=== PATIENT | female | born 2000 | race Caucasian/White ===

== ENCOUNTER 2021-06-24 18:43 | Outpatient (CLI) | payer OTHER ==
[2021-06-24 19:12] LABS: BASOPHILS % (AUTO) 0.3 %; EOSINOPHILS % (AUTO) 0.4 %; HCT - HEMATOCRIT 35.7 % (37.0-47.0); HGB - HEMOGLOBIN 11.9 g/dL (12.0-16.0); LYMPHOCYTES # (AUTO) 1.8 10^3/uL (1.5-3.5); LYMPHOCYTES % (AUTO) 25.6 %; MEAN CORPUSCULAR HEMOGLOBIN 28.7 pg (27.0-31.0); MEAN CORPUSCULAR HGB CONC 33.3 g/dL (32.0-36.0); MEAN CORPUSCULAR VOLUME 86.2 fL (81.0-99.0); MONOCYTES # (AUTO) 0.5 10^3/uL (0.0-1.0); MONOCYTES % (AUTO) 6.5 %; NEUTROPHILS # (AUTO) 4.8 10^3/uL (1.5-6.6); NEUTROPHILS % (AUTO) 66.9 %; PLT - PLATELET COUNT 209 10^3/uL (130-450); RED BLOOD COUNT 4.14 10^6/uL (4.20-5.40); WHITE BLOOD COUNT 7.2 x10^3/uL (4.8-10.8)
[2021-06-24 19:51] LABS: MUDS CUTOFF CONCENTRATIONS CUTOFF CONC BELOW:
[2021-06-24 19:53] LABS: BILIRUBIN,URINE NEGATIVE (NEGATIVE); GLUCOSE, URINE (UA) NEGATIVE (NEGATIVE); KETONES,URINE (UA) NEGATIVE (NEGATIVE); LEUKOCYTE ESTERASE, URINE NEGATIVE (NEGATIVE); NITRITE,URINE NEGATIVE (NEGATIVE); OCCULT BLOOD,URINE MODERATE (NEGATIVE); PROTEIN,URINE NEGATIVE (NEGATIVE); UROBILINOGEN,URINE 0.2 (NORMAL) E.U./dL (NORMAL)
[2021-06-24 19:57] LABS: CLARITY,URINE HAZY (CLEAR)
[2021-06-24 20:02] LABS: AMORPHOUS SEDIMENT,UR Few /LPF; BACTERIA,URINE Rare /HPF (None Seen); SQUAMOUS EPITHELIAL CELL,UR FEW Squamous (<= Few); WBC,URINE 0-3 /HPF (0-5)
[2021-06-24 20:05] LABS: AMPHETAMINE SCREEN,URINE NEGATIVE (NEGATIVE); BARBITURATE SCREEN,UR NEGATIVE (NEGATIVE); BENZODIAZEPINES SCREEN, URINE NEGATIVE (NEGATIVE); COCAINE SCREEN URINE NEGATIVE (NEGATIVE); METHADONE SCREEN, URINE NEGATIVE (NEGATIVE); METHAMPHETAMINES SCREEN, URINE NEGATIVE (NEGATIVE); OPIATE SCREEN, URINE NEGATIVE (NEGATIVE); OXYCODONE SCREEN, URINE NEGATIVE (NEGATIVE); PROPOXYPHENE SCREEN, URINE NEGATIVE (NEGATIVE); THC CANNABINOID SCREEN, URINE NEGATIVE (NEGATIVE); TRICYCLIC ANTIDEPRESSANT,URINE NEGATIVE (NEGATIVE)
--- NOTE | 2021-06-25 09:24 | Ultrasound Report ---
PROCEDURE: OB First Trimester w/TV INDICATIONS: POSITIVE TEST OUTSIDE/PRIOR DATING DATA: Last menstrual period (LMP): 04/15/2021. LMP-based estimated date of delivery (TYRELL): 01/20/2022. First dating scan (date and location): 06/24/2021. Estimated date of delivery (TYRELL) from first dating scan: 01/18/2022. The below data below was generated using the ultrasound generated TYRELL of 01/18/2022 TECHNIQUE: Real-time scanning was performed of the fetus and maternal pelvic organs, with image documentation. Endovaginal scanning was also performed to better visualize the fetus and maternal ovaries. COMPARISON: None FINDINGS: Embryo: There is a gestational sac in the uterine fundus with mean sac diameter of 5.1 cm. Within th e gestational sac there is an embryo measuring 3.4 cm in length. Average ultrasound age is 10 weeks 2 days. Heart rate: 166 Measurement variability in dating: +/- 4 weeks by LMP, +/- 7 days by mean sac diameter (use before 6 weeks gestation if crown-rump length not able to be measured), +/- 5 days by crown-rump length (6-12 weeks gestation). Maternal organs: Ovaries normal in appearance. Right corpus luteum cyst noted. IMPRESSION: Single live intrauterine gestation with average ultrasound age of 10 weeks 2 days. Reviewed by: Srini Montalvo MD on 06/25/2021 9:23 AM PDT Approved by: Srini Montalvo MD on 06/25/2021 9:23 AM PDT Station ID: [id number]
[2021-06-26 12:12] LABS: HEPATITIS B SURFACE ANTIGEN NON-REACTIVE (NON-REACTIVE); HEPATITIS C ANTIBODY NON-REACTIVE (NON-REACTIVE)
[2021-06-26 15:31] LABS: HIV AG/AB 4TH GEN NON-REACTIVE (NON-REACTIVE)
== END 2021-06-24 18:44 | disposition home or self-care (01) ==
LOC: DI 18:43
PROVIDERS: ATTEND Nurse Practitioner Obstetrics & Gynecology
DX: Z36.89 Encounter for other specified antenatal screening (principal); Z32.01 Encounter for pregnancy test, result positive
CPT/HCPCS: 36415; 80306; 81001; 85025; 86592; 86762; 86787; 86803; 86850; 86900; 86901; 87086; 87340; 87389

== ENCOUNTER 2021-06-28 08:00 | Outpatient (CLI) | payer OTHER ==
[2021-06-28 23:22] LABS: CHLAMYDIA TRACHOMATIS DNA NEGATIVE (NEGATIVE); NEISSERIA GONORRHOEAE DNA NEGATIVE (NEGATIVE); TRICHOMONAS VAGINALIS DNA NEGATIVE (NEGATIVE)
== END 2021-06-28 23:59 | disposition home or self-care (01) ==
LOC: LAB.WC 08:00
PROVIDERS: ATTEND Nurse Practitioner Obstetrics & Gynecology
DX: Z34.90 Encounter for supervision of normal pregnancy, unspecified, unspecified trimester (principal)
CPT/HCPCS: 87491; 87591; 87661

== ENCOUNTER 2021-08-16 11:19 | Outpatient (CLI) | payer OTHER ==
[2021-08-19 12:41] LABS: AFP MOM 1.25; AGE RISK DOWN SYNDROME 1 IN 1138; CALC'D GESTATIONAL AGE 17.6 weeks; CIGARETTE SMOKER? NOT GIVEN; DONOR AGE: EGG RETRIEVAL NOT GIVEN; DONOR EGG NO; ESTRIOL MOM 0.79; HCG MOM 1.86; HX OF NEURAL TUBE DEFECTS NO; INHIBIN A MOM 0.87; INSULIN DEPEND DIABETIC NO; MATERNAL WEIGHT 143 lbs; MSS DOWN SYNDROME RISK <1 IN 5000; MSS3 TRISOMY 18 RISK <1 IN 5000; NUMBER OF FETUSES 1; PREV PREGNANCY DOWN SYND NO; RISK FOR ONTD <1 IN 5000
== END 2021-08-16 11:20 | disposition home or self-care (01) ==
LOC: LAB 11:19
PROVIDERS: ATTEND Radiology Diagnostic Radiology
DX: Z36.0 Encounter for antenatal screening for chromosomal anomalies (principal)
CPT/HCPCS: 36415; 81511

== ENCOUNTER 2021-09-09 09:06 | Outpatient (CLI) | payer OTHER ==
--- NOTE | 2021-09-09 14:11 | Ultrasound Report ---
PROCEDURE: OB Detailed Eval INDICATIONS: SUPERVISION OF NORMAL OUTSIDE/PRIOR DATING DATA: Last menstrual period (LMP): 04/15/2021. LMP-based estimated date of delivery (TYRELL): 01/20/2022. First dating scan (date and location): 06/24/2021. Estimated date of delivery (TYRELL) from first dating scan: 01/18/2022. The below data below was generated using the ultrasound TYRELL of 01/18/2022 TECHNIQUE: Real-time scanning was performed of the fetus, with image documentation and biometric measurements. Endovaginal scanning: Not performed. COMPARISON: OB ultrasound 06/24/2021. FINDINGS: General: A single living intrauterine gestation is present. Presentation: Vertex Placenta: Placental position is posterior, without previa. Amniotic fluid index: 11.2 cm, normal for gestational age. Largest pocket is 4.1 cm. heart rate: 150 beats per minute. Maternal cervical canal: 3.5 cm long; normal length is 2.5 cm or more. biometrics: Biparietal diameter: 4.92 cm, 20 weeks 6 days Head circumference: 18.5 cm, 20 weeks 6 days Abdominal circumference: 16.7 cm, 21 weeks 5 days Femur length: 3.7 cm, 21 weeks 6 days Estimated gestational age from initial scan: 21 weeks 2 days Composite gestational age from present scan: 21 weeks 3 days Estimated weight and percentile: 440 g, 65th percentile Measurement variability in biometric dating: +/- 10 days from 12-20 weeks gestation, +/- 2 weeks from 20-30 weeks gestation, +/- 3 weeks at 30 weeks gestation or later. Anatomic survey: Neuro: Ventricles are normal at less than 10 mm. Cisterna magna is normal at 3-11 mm. Cerebellum i s normal in size and morphology. Nuchal skin fold: Normal at less than 6 mm between 14 and 20 weeks gestational age. Face: Nose and lips are normal. Facial profile not well visualized. Spine: No evidence for spina bifida. Heart: 4-chambered heart is present. Ventricular outflow tracts are not well visualized. Diaphragm: Diaphragm is intact. Stomach: Left-sided stomach is present. Kidneys: No hydronephrosis. Normal is less than 5 mm in 2nd trimester, less than 7 mm in 3rd trimester. Cord: 3 vessel cord has orthotopic insertion. Bladder: Normal in size. Extremities: All 4 extremities are visualized. IMPRESSION: 1.Single live intrauterine with appropriate interval growth. 2.Ventricular outflow tracts and facial profile are not well visualized. Recommend follow-up examinat ion. 3.Otherwise, normal anatomic survey. Reviewed by: Alejandro Trevino MD on 09/09/2021 2:10 PM PDT Approved by: Alejandro Trevino MD on 09/09/2021 2:10 PM PDT Station ID: [id number]
== END 2021-09-09 09:07 | disposition home or self-care (01) ==
LOC: DI 09:06
PROVIDERS: ATTEND Advanced Practice Midwife
DX: Z34.02 Encounter for supervision of normal first pregnancy, second trimester (principal)

== ENCOUNTER 2021-09-13 17:00 | Outpatient (CLI) | payer OTHER ==
--- NOTE | 2021-09-13 22:20 | Ultrasound Report ---
PROCEDURE: OB F/U or Repeat INDICATIONS: SUPERVISION OF OUTSIDE/PRIOR DATING DATA: Last menstrual period (LMP): 04/15/2021. LMP-based estimated date of delivery (TYRELL): 01/20/2022. First dating scan (date and location): 06/24/2021. Estimated date of delivery (TYRELL) from first dating scan: 01/18/2022. The below data below was generated using the ultrasound TYRELL of 01/18/2022 TECHNIQUE: Real-time scanning was performed of the fetus, with image documentation and biometric measurements. COMPARISON: 09/09/2021 FINDINGS: General: A single living intrauterine gestation is present. Presentation: Breech Placenta: Placental position is posterior, without previa. Amniotic fluid index: 10 cm, normal for gestational age. heart rate: 154 beats per minute. Maternal cervical canal: 3.4 cm long; normal length is 2.5 cm or more. anatomy: Facial profile: Normal Four-chamber view: Normal Outflow tracts: Normal Chest/diaphragm: Normal Stomach/abdomen: Normal Right renal region: Normal Left renal region: Normal Urinary bladder/pelvis: Normal Other: Not applicable. IMPRESSION: 1. Live intrauterine with a composite gestational age of 21 weeks 6 days by initial ultraso und. 2. LEIGH ANN 10 cm. 3. Completion of anatomic scan with normal visualized anatomy. Reviewed by: Jermaine Gonzalez on 09/13/2021 10:19 PM PDT Approved by: Jermaine Gonzalez on 09/13/2021 10:19 PM PDT Station ID: [id number]
== END 2021-09-13 17:01 | disposition home or self-care (01) ==
LOC: DI 17:00
PROVIDERS: ATTEND Nurse Practitioner Obstetrics & Gynecology
DX: Z34.00 Encounter for supervision of normal first pregnancy, unspecified trimester (principal)

== ENCOUNTER 2021-10-15 14:45 | Outpatient (CLI) | payer OTHER ==
[2021-10-15 21:05] LABS: BACTERIAL VAGINOSIS DNA NEGATIVE (NEGATIVE); CANDIDA GLABRATA DNA NEGATIVE (NEGATIVE); CANDIDA GROUP DNA NEGATIVE (NEGATIVE); CANDIDA KRUSEI DNA NEGATIVE (NEGATIVE); TRICHOMONAS VAGINALIS DNA NEGATIVE (NEGATIVE)
== END 2021-10-15 23:59 | disposition home or self-care (01) ==
LOC: LAB 14:45
PROVIDERS: ATTEND Nurse Practitioner Obstetrics & Gynecology
DX: N89.8 Other specified noninflammatory disorders of vagina (principal)
CPT/HCPCS: 87661; 87801

== ENCOUNTER 2021-11-01 09:55 | Outpatient (CLI) | payer OTHER ==
[2021-11-01 11:24] LABS: HCT - HEMATOCRIT 31.7 % (37.0-47.0); HGB - HEMOGLOBIN 10.4 g/dL (12.0-16.0); MEAN CORPUSCULAR HEMOGLOBIN 29.5 pg (27.0-31.0); MEAN CORPUSCULAR HGB CONC 32.8 g/dL (32.0-36.0); MEAN CORPUSCULAR VOLUME 89.8 fL (81.0-99.0); MEAN PLATELET VOLUME 10.2 fL (7.9-10.8); RED BLOOD COUNT 3.53 10^6/uL (4.20-5.40); RED CELL DISTRIBUTION WIDTH 13.6 % (12.0-15.0); WHITE BLOOD COUNT 8.8 x10^3/uL (4.8-10.8)
== END 2021-11-01 09:56 | disposition home or self-care (01) ==
LOC: LAB 09:55
PROVIDERS: ATTEND Nurse Practitioner Obstetrics & Gynecology
DX: Z34.90 Encounter for supervision of normal pregnancy, unspecified, unspecified trimester (principal); Z36.89 Encounter for other specified antenatal screening
CPT/HCPCS: 36415; 82950; 85025; 85027

== ENCOUNTER 2021-12-23 08:00 | Outpatient (CLI) | payer OTHER | END 2021-12-23 23:59 | disposition home or self-care (01) | LOC: LAB.WC 08:00 | PROVIDERS: ATTEND Obstetrics & Gynecology | DX: Z36.85 Encounter for antenatal screening for Streptococcus B (principal) | CPT/HCPCS: 87797 ==

== ENCOUNTER 2021-12-28 09:20 | Inpatient (IN) | payer OTHER ==
[2021-12-28] MEDS ORDERED: fentaNYL 100 MCG/2 ML VIAL IVP PRN (09:49)
[2021-12-28] MEDS ORDERED: miSOPROStoL 200 MCG TABLET BC PRN (09:49)
[2021-12-28] MEDS ORDERED: OXYTOCIN/SODIUM CHLORIDE 500 ML IV PRN (09:49)
[2021-12-28] MEDS ORDERED: TERBUTALINE 1 MG/ML VIAL SUBQ PRN (09:49)
[2021-12-28] MEDS ORDERED: LABETALOL 20 MG/4 ML SYRINGE IVP PRN ×2 (09:49)
[2021-12-28] MEDS ORDERED: hydrALAZINE INJ 20 MG/ML VIAL IVP PRN (09:49)
[2021-12-28] MEDS ORDERED: TRANEXAMIC ACID IN NACL 1,000 MG/100 ML BAG IV PRN (09:49)
[2021-12-28] MEDS ORDERED: METHYLERGONOVINE 0.2 MG/ML VIAL IM PRN (09:49)
[2021-12-28] MEDS ORDERED: LIDOCAINE-MPF 1% 30 ML VIAL ID PRN (09:49)
[2021-12-28] MEDS ORDERED: CARBOPROST TROMETHAMINE 250 MCG/ML AMP IM PRN (09:49)
[2021-12-28] MEDS ORDERED: OXYTOCIN 10 UNIT/ML VIAL IM PRN (09:49)
[2021-12-28] MEDS ORDERED: SODIUM CHLORIDE FLUSH 0.9% 10 ML SYRINGE IVP PRN (09:49)
[2021-12-28] MEDS ORDERED: miSOPROStoL 200 MCG TABLET PR PRN (09:49)
--- NOTE | 2021-12-28 09:52 | HISTORY & PHYSICAL EXAMINATION ---
Admit History - Visit Reason Visit Reason: Membranes rupture - : 2 Premature: 1 : 0 Risk/History: positive: labor <37 weeks Complications This : positive: None Smoking Status: Never smoker - Mother's Labs Mother's Blood Type: positive: O Mother's RH: positive: Positive GBS: positive: Group B Step Negative Rubella Status: positive: Immune - Other Maternal History Other Maternal History: HPI: Patient is a 21-year-old -0-0-1 at 36 weeks 5 days gestation presenting for leaking of fluid and contractions. Patient awoke this morning with wetness around 0700. She had some cramping that gradually increased to contractions, now occurring every several minutes. She has good movement. No FABIAN/BV or RUQP. No vaginal bleeding. Denies nausea and vomiting. Denies urinary urgency or dysuria. All other symptoms reviewed and were negative except per HPI. Course LMP 04/15/2021 LMP by TYRELL 01/20/2022 Initial U/S @ 10.2wks gestation c/w LMP dating (01/18/2022) Final TYRELL 01/20/2022: O pos/Rubella immune VZV-non immune *pt notified will be offered pp Genetic testing: quad screen- NEGATIVE FAS:WNL with the exception of poor visualzation of cardiac outflow tracts and facial profile. Posterior placenta, no previa. 3VC. LEIGH ANN WNL Size c/w dating (EFW 65%tile)F/U ordered Completion FAS WNL Glucola 109 Influenza: 08/16 Covid: Moderna-fully vaccinated TDAP 11/01/2021 GBS Negative 12/23/21 HSV: denies in self and partner Breast pump Rx 10/15/2021 MOD: Anticipate ; desires unmedicated delivery (had with first); It's a GIRL!! Manuel, son Manuel; pp contraception: POPs vs Nexplanon pap:02/09/2021 WNL per pt PMH Anemia PSH Denies OB History 1. 04/16/2019, 35 weeks, male, , 5 pounds 1 ounce, labor, rupture membranes SH Denies tobacco, alcohol, drugs Family History Maternal grandmother: Diabetes, hypertension Allergies No known drug allergies Medications Ferrous sulfate 300 mg once a day vitamins Physical exam: General: Alert, oriented, no acute distress Head: Normal cephalic atraumatic Eyes: PERRLA, extraocular motions intact. Respiratory: Normal rate of respiration. No accessory muscle use, normal respiratory effort. Cardiovascular: Regular rate and rhythm Abdomen: Gravid, nontender, nondistended Extremities: Normal range of motion Neuro: Oriented x3. Normal movements Psych: Appropriate mood and affect. Normal judgment and insight Grossly ruptured on exam. SVE: 6/80/-2 FHT: 140 beats per minute baseline, moderate variability, accelerations present, mild decelerations noted, but hard to trace contractions to assess. [place]: Every 3 minutes Plan 21-year-old at 36 weeks 5 days gestation with rupture of membranes and labor 1. labor - admit to L&D, admit labs, epidural at patient's request Unlikely to gain benefit from late corticosteroids, so will re frain at this time. 2. rupture of membranes 3. Iron deficiency anemia Meds/Allgy - Allergies Allergies/Adverse Reactions: Allergies Allergy/AdvReac Type Severity Reaction Status Date / Time No Known Drug Allergies Allergy Verified 12/28/21 10:10 Physical - Abdominal Exam Vital Signs: Temp Pulse Resp BP Pulse Ox 98.2 F 93 18 125/78 98 12/28/21 09:30 12/28/21 09:30 12/28/21 09:30 12/28/21 09:30 12/28/21 09:30
[2021-12-28] MEDS ORDERED: SODIUM CHLORIDE FLUSH 0.9% 10 ML SYRINGE IVP SCH (10:00)
[2021-12-28 10:23] LABS: BASOPHILS % (AUTO) 0.3 %; EOSINOPHILS % (AUTO) 0.3 %; HCT - HEMATOCRIT 38.8 % (37.0-47.0); HGB - HEMOGLOBIN 12.6 g/dL (12.0-16.0); LYMPHOCYTES # (AUTO) 1.9 10^3/uL (1.5-3.5); LYMPHOCYTES % (AUTO) 18.8 %; MEAN CORPUSCULAR HEMOGLOBIN 28.7 pg (27.0-31.0); MEAN CORPUSCULAR HGB CONC 32.5 g/dL (32.0-36.0); MEAN CORPUSCULAR VOLUME 88.4 fL (81.0-99.0); MONOCYTES # (AUTO) 0.4 10^3/uL (0.0-1.0); MONOCYTES % (AUTO) 4.4 %; NEUTROPHILS # (AUTO) 7.6 10^3/uL (1.5-6.6); NEUTROPHILS % (AUTO) 75.6 %; PLT - PLATELET COUNT 199 10^3/uL (130-450); RED BLOOD COUNT 4.39 10^6/uL (4.20-5.40); RED CELL DISTRIBUTION WIDTH 14.5 % (12.0-15.0)
[2021-12-28] MEDS: OXYTOCIN/SODIUM CHLORIDE 500 ML IV PRN ×2 (11:11→13:17)
--- NOTE | 2021-12-28 11:21 | DELIVERY NOTE ---
Delivery Note - Labor Labor: positive: Spontaneous - Delivery Method Delivery Method: positive: Spontaneous vaginal delivery - Presentation Presentation: positive: NELY - right occiput anterior - Nuchal Cord Nuchal Cord: positive: None - Anesthetic Anesthetic Type: - Episiotomy Type Episiotomy Type: positive: None - Laceration Laceration: positive: None - [place]: positive: Placed in direct skin contact with mother, [place] used [place] sex: positive: Female - Cord Cord: positive: 3 vessels - Placenta Placenta: positive: Intact - Estimated Blood Loss Estimated Blood Loss (in cc): 100 - Post Delivery Events Post Delivery Events: positive: No post delivery events - Delivery Comments (Free Text/Narrative) Delivery Comments (Free Text/Narrative): Preoperative Diagnoses 21-year-old -1-0-1 at 36 weeks 5 days gestation rupture of membranes labor Postoperative Diagnoses Same Status post spontaneous vaginal delivery Patient had rupture of membranes around 07 100 this morning and began christiano shortly thereafter. She arrived to the hospital was found to be 6 cm and an grossly ruptured and was transferred to the labor room. She made quick progress to 8 cm and a few minutes later felt the urge to push. She was found to be complete and ready to push. Delivery Summary: Patient was placed in the dorsal lithotomy position. Upon maternal pushing the head was delivered atraumatically followed by the anterior shoulder, posterior shoulder, then the remainder of the infant's body. A female was delivered with APGARS of 9 at 1 minute and 9 at 5 minutes. The infant was placed on her mother's chest . After the cord finished pulsating, the umbilical cord was clamped times two and cut. The placenta delivered intact with three vessel cord. Placenta was not sent to pathology. Thirty units of Pitocin were added to the IV fluid and allowed to run freely. Uterine massage was performed until uterus was deemed firm. Upon inspection of the perineum, vagina and cervix were intact. Uterus again massaged and found to be firm. Needle and sponge counts were correct. Patient was stable and allowed to recover in L&D room. was stable and remained in room with mother. weight is pending at this time.
[2021-12-28] MEDS: ACETAMINOPHEN 500 MG TABLET PO SCH ×2 (13:14→21:20)
[2021-12-28] MEDS: IBUPROFEN 600 MG TABLET PO SCH ×2 (13:14→18:50)
[2021-12-28] MEDS: DOCUSATE SODIUM 100 MG CAPSULE PO SCH (21:20)
[2021-12-29] MEDS: IBUPROFEN 600 MG TABLET PO SCH ×3 (01:56→14:55)
[2021-12-29] MEDS: ACETAMINOPHEN 500 MG TABLET PO SCH ×2 (05:31→13:04)
--- NOTE | 2021-12-29 08:15 | Discharge Plan ---
Discharge Plan Problem Reviewed?: Yes Disposition: Home, Self Care Condition: Good Diet: Regular Shower Restrictions: No Driving Restrictions: No Weight Bearing: Full Weight Instruction Topics: Vaginal After No Smoking: If you smoke, Please STOP! Call for help. Follow-up with: BARTOLOME DE LA CRUZ MD [Primary Care Provider] - Annalise Yates CNM, ARNP [Provider Admit Priv/Credential] -
--- NOTE | 2021-12-29 08:18 | DISCHARGE SUMMARY ---
Discharge Summary Admit Date: 12/28/21 Discharge Date: 12/29/21 Discharging Provider: Ean Gale MD Code Status: Attempt Resuscitation Condition at Discharge: Good Discharge Disposition: 01 Home, Self Care - DIAGNOSES Admission Diagnoses: 36 to 8 weeks gestation labor Discharge Diagnoses with Status of Each Condition: 36 to 8 weeks gestation labor Delivered - HPI History of Present Illness: Subjective Patient reports she is doing well. Lochia appropriate. Denies heavy bleeding. Ambulating. Pelvic and abdominal pain well-controlled. Tolerating oral intake. Diet: Regular. Voiding without difficulty. Passing flatus. Denies BM. Patient is bonding with baby [in room] Breast feeding going well. Denies feeling lightheaded, dizzy or excessively fatigued. Objective General: Alert, oriented, no apparent distress. Cardiovascular: Regular rate. Regular rhythm. Lungs: No increased work of breathing. Abdomen: Uterus firm. Below umbilicus. No guarding or rebound. - HOSPITAL COURSE Hospital Course: Patient is a 21-year-old -0-0-1 at 36 weeks 5 days gestation on admission. She was found to be in labor and was admitted for delivery. She did have a history of labor with her previous . She delivered several hours later spontaneously with no lacerations. course was unremarkable and she desired to go home on day 1. - ALLERGIES Allergies/Adverse Reactions: Allergies Allergy/AdvReac Type Severity Reaction Status Date / Time No Known Drug Allergies Allergy Verified 12/28/21 10:10 - MEDICATIONS Home Medications: Ambulatory Orders Medication Instructions Recorded Confirmed Acetaminophen [Acetaminophen Extra 1,000 mg PO Q8H PRN #60 tablet 12/29/21 Strength] Docusate Sodium 100Mg Capsule 100 - 200 mg PO BID PRN #60 cap 12/29/21 [Colace 100Mg Capsule] Ibuprofen [Motrin] 600 mg PO Q6H PRN #30 tab 12/29/21 - LABS Result Diagrams: 12/28/21 09:55 - FOLLOW UP Follow Up: Follow-up with [facility] in 1 week. - TIME SPENT Time Spent in Discharge (Minutes): 15
[2021-12-29] MEDS: DOCUSATE SODIUM 100 MG CAPSULE PO SCH (08:47)
[2021-12-29 12:41] VITALS: BP 117/71
--- NOTE | 2021-12-29 16:20 | Labor Flowsheet ---
Labor Flowsheet Datetime Report Generated by CPN: 12/29/2021 16:20 Datetime: 12/29/2021 12:40 VITAL SIGNS NBP Sys/Carmita/Mean (mmHg): 117 : 71 : 80 Pulse: 94 SpO2 (%): 100 Datetime: 12/28/2021 11:18 Stage of : Datetime: 12/28/2021 11:14 Patient Care Comments: placenta Datetime: 12/28/2021 11:03 UTERINE ACTIVITY Monitor Mode: Palpation Frequency (min): 1-3 Quality: Strong Duration (sec): 60-80 Pattern: Normal: <= 5 Contractions in 10 Minutes Resting Tone (Palpate): Relaxed ASSESSMENT A Monitor Mode: External US FHR Baseline Rate : 145 Variability: Moderate 6-25 bpm Accelerations: 15X15 Decelerations: Early; Variable Category: Category II Datetime: 12/28/2021 10:57 VAGINAL EXAM Dilatation (cm): 10.0 Exam by: Baljinder STAGE 2 Pushing: Urge to Push; Involuntary Pushing Datetime: 12/28/2021 10:54 COMMUNICATION Communication: Provider at Bedside Datetime: 12/28/2021 10:48 TEACHING Pain Management: PRN Medications Datetime: 12/28/2021 10:45 Effacement (%): 100 Station: -1 Datetime: 12/28/2021 10:35 Monitor Interventions for FHR: Ultrasound Adjusted Datetime: 12/28/2021 10:32 MATERNAL ASSESSMENT Level of Consciousness: Alert Headache: Denies Breath Sounds, Left: Clear and Equal Breath Sounds, Right: Clear and Equal Nausea/Vomiting: Denies RUQ Epigastric Pain: Denies Datetime: 12/28/2021 10:31 PATIENT CARE I/O Interventions: Up to BR Datetime: 12/28/2021 10:29 PAIN Pain Scale: 8 Pain Presence: Intermittent Pain Type: Cramping Pain Location: Abdomen Pain Goal: 10 Pain Coping: Breathing Through Contractions Datetime: 12/28/2021 10:20 Monitor Interventions for UA: [place] Adjusted
== END 2021-12-29 16:16 | disposition home or self-care (01) | DRG 807 ==
LOC: WFO 09:20 → FBP 09:23 → WFO 09:48 → FBP 09:49
PROVIDERS: ADMIT Obstetrics & Gynecology; ATTEND Obstetrics & Gynecology
PROC: 10E0XZZ Delivery of Products of Conception, External Approach (ICD-10-PCS; principal; 2021-12-28)
DX: O60.14X0 Preterm labor third trimester with preterm delivery third trimester, not applicable or unspecified (principal); Z37.0 Single live birth; Z3A.36 36 weeks gestation of pregnancy; O99.02 Anemia complicating childbirth; D50.9 Iron deficiency anemia, unspecified
CPT/HCPCS: 85025; 86850; 86900; 86901; A9270; 99213